=== PATIENT | male | born 1955 | race African-American/Black ===

== ENCOUNTER 2017-11-17 18:39 | Emergency (ER) | payer MEDICAID, OTHER ==
[~2017-11-17] VITALS: Ht 157.5 cm; Wt 55.5 kg
[2017-11-17] MEDS ORDERED: ACETAMINOPHEN 500MG TABLET PO ONE (21:00)
[2017-11-17 21:31] VITALS: BP 137/95
== END 2017-11-17 21:35 | disposition home or self-care (01) ==
LOC: ER 21:15
DX: B02.9 Zoster without complications (principal)
CPT/HCPCS: 99283

== ENCOUNTER 2022-02-17 20:03 | Emergency (ER) | payer MEDICARE, MEDICAID ==
[~2022-02-17] VITALS: Ht 157.5 cm; Wt 48.0 kg
[2022-02-18] MEDS ORDERED: HYDROCODONE/ACETAMINOPHEN 5/325MG TABLET PO ONE (01:30)
[2022-02-18 01:36] VITALS: BP 156/89
[2022-02-18] MEDS ORDERED: SODIUM CHLORIDE 0.9% 1,000 ML IV ONE (03:00)
[2022-02-18 04:49] LABS: BASOPHILS % 1.1 % (0.0-2.0); EOSINOPHILS % 2.6 % (0.0-5.0); HEMATOCRIT. 46.3 % (42.0-52.0); MEAN CORPUSCULAR HEMOGLOBIN 30.7 pg (28.0-32.0); MEAN CORPUSCULAR VOLUME 88.6 fL (80.0-94.0); MEAN PLATELET VOLUME 7.6 fl (7.4-10.4); NEUTROPHILS % 66.3 % (40.0-76.0); RED BLOOD CELL COUNT 5.22 mill/uL (4.7-6.1); RED CELL DISTRIBUTION WIDTH 15.2 % (11.6-14.6)
[2022-02-18 04:56] LABS: PLATELET 1020 x1000/uL (130-400)
[2022-02-18 04:59] LABS: CHLORIDE 102 mEq/L (98-107)
[2022-02-18 10:30] LABS: PLATELET ESTIMATE MARKEDLY INCREASED
== END 2022-02-18 08:30 | disposition home or self-care (01) ==
LOC: ER 20:03
DX: R07.89 Other chest pain (principal); R53.1 Weakness; I10 Essential (primary) hypertension; R79.1 Abnormal coagulation profile; E78.00 Pure hypercholesterolemia, unspecified; Z87.01 Personal history of pneumonia (recurrent)
CPT/HCPCS: 36415; 71045; 71046; 71275; 80053; 84484; 85025; 85379; 93005; 96360; 99285